=== PATIENT | male | born 1955 | race Caucasian/White ===

== ENCOUNTER 2025-03-22 14:03 | Emergency (ER) | payer MEDICARE, MEDICAID, SELFPAY ==
[2025-03-22 14:04] VITALS: BMI 29.1
[2025-03-22 14:19] VITALS: BP 139/81; PULSE 77; RESP 18; TEMP 36.6; O2SAT 95
--- NOTE | 2025-03-22 14:24 | EKG_ITS ---
[facility] Test Date: 2025-03-22 Pat Name: MANSI FULTON Department: Room: - Gender: Male Be[employer] Killer: : 1955 Requested By: Corby Jay (VICTORIANO) Order Number: [id number] Reading MD: Corby Jay (CYCLE ANALYST) Measurements Intervals [place] Rate: 75 P: 29 [place]: 161 QRS: -52 QRSD: 86 T: 29 QT: 357 QTc: 400 Interpretive Statements SINUS RHYTHM PATTERN CONSISTENT WITH PULMONARY DISEASE LEFT ANTERIOR FASCICULAR BLOCK [QRS AXIS <= -45, QR IN I, RS IN II] Compared to ECG 10/07/2018 09:44:36 Left anterior fascicular block now present Sinus bradycardia no longer present Left-axis deviation no longer present Incomplete right bundle-branch block no longer present /[id number]/[id number].pdf
--- NOTE | 2025-03-22 14:24 | XR_ITS ---
Examination: PA lateral chest 2 views TECHNIQUE: Upright PA lateral chest 2 views Exam date and time: March 14, 2025 1618 hours Comparison October 07, 2018 INDICATIONS: Chest pain today. FINDINGS: Mild opacity in the lingular segment Normal heart size Right lung clear Moderate osteopenia IMPRESSION: Scarring versus mild pneumonia in the lingular segment left upper lobe, clinical correlation advised
--- NOTE | 2025-03-22 14:25 | EDRME_ITS ---
Rapid Medical Screening Exam RME Arrival date/time: 03/22/25 14:03 70-year-old male presents to the emergency department for complaint of left- sided chest pain ongoing x 4 days Chief Complaint: Chest Pain Time Seen by Provider: 03/22/25 14:23 Vital signs: Vital Signs Temperature 97.9 F 03/22/25 14:19 Pulse Rate 77 03/22/25 14:19 Respiratory Rate 18 03/22/25 14:19 Blood Pressure 139/81 H 03/22/25 14:19 Pulse Oximetry (%) 95 03/22/25 14:19 Oxygen Delivery Method Room Air 03/22/25 14:19
[2025-03-22 16:05] LABS: Basophils % (Auto) 0 % (0-2.5); Eosinophils # (Auto) 0.1 Thou/mm3 (0.0-0.5); Eosinophils % (Auto) 1 % (0-10); Hematocrit 41.6 % (41.0-53.0); Hemoglobin 14.7 g/dL (13.5-16.0); Immature Granulocytes % (Auto) 0 % (0-0); Immature Granulocytes Auto 0.02 Thou/mm3 (0.00-0.00); Lymphocytes # (Auto) 4.2 Thou/mm3 (1.0-4.8); Lymphocytes % (Auto) 40 % (10-50); Mean Corpuscular HGB Conc 35.3 g/dl (31.0-37.0); Mean Corpuscular Hemoglobin 33.6 pg (25.0-35.0); Mean Corpuscular Volume 95 fL (80-100); Monocytes # (Auto) 0.8 Thou/mm3 (0.0-0.8); Monocytes % (Auto) 7 % (0-12); Neutrophils # (Auto) 5.3 Thou/mm3 (1.8-7.7); Neutrophils % (Auto) 51 % (37-80); Nucleated Red Blood Cell % 0 /100 WBC (0); Platelet Count 208 Thou/mm3 (140-440); RDW Standard Deviation 46.5 fL (35.1-43.9); Red Blood Count 4.38 Miln/mm3 (4.50-5.90); White Blood Count 10.4 Thou/mm3 (3.8-10.6)
[2025-03-22 16:14] LABS: B-Type Natriuretic Peptide < 20 pg/mL (0-100)
[2025-03-22 16:15] LABS: Alanine Aminotransferase 16 U/L (10-49); Albumin, Serum 4.7 gm/dL (3.4-4.8); Albumin/Globulin Ratio 1.6 (1.2-2.2); Alkaline Phosphatase 119 U/L (46-116); Anion Gap 7 (7-16); Aspartate Amino Transferase 22 U/L (0-34); BUN/Creatinine Ratio 18 Ratio (12-20); Bilirubin,Total 0.4 mg/dL (0.3-1.2); Blood Urea Nitrogen 14 mg/dL (9-23); Calcium 9.6 mg/dL (8.3-10.6); Calcium (Corrected) 9.6 mg/dL (8.5-10.1); Carbon Dioxide 24.7 mMol/L (20.0-31.0); Chloride 104 mMol/L (98-107); Creatinine (Component) 0.8 mg/dL (0.6-1.3); Estimated Creatinine Clearance 84.6 mL/min (>60); Glucose 115 mg/dL (74-106); Osmolality,Calculated 273 (275-295); Potassium 4.1 mMol/L (3.4-5.1); Sodium 136 mMol/L (136-145); Total Protein 7.7 gm/dL (5.7-8.2); Troponin I < 0.002 ng/mL (0.0-0.045); eGFR > 60 See Note
[2025-03-22 17:22] LABS: Collection Type, Urine Clean Catch; Squamous Epithelial Cell,Urine 0 /hpf (0-5)
[2025-03-22 17:43] LABS: Bilirubin,Urine Negative (Negative); Blood,Urine Negative (Negative); Clarity,Urine Clear (Clear/Hazy); Color,Urine Lt-Yellow (Lt Yel-Yel); Glucose, Urine Negative (Negative); Ketones,Urine Negative (Negative); Leukocyte Esterase,Urine Negative (Negative); Nitrite,Urine Negative (Negative); PH,Urine 5.5 (5.0-7.0); Protein,Urine Negative (Neg - Trace); RBC,Urine 1 /hpf (0-3); Specific Gravity,Urine 1.017 (1.001-1.035); Urobilinogen,Urine Negative mg/dL (0.0-1.0); WBC,Urine 1 /hpf (0-5)
[2025-03-22 18:19] VITALS: BP 154/94; PULSE 85; RESP 16; TEMP 37.1; O2SAT 97
[2025-03-22 18:23] LABS: Amphetamine/Methamp Scrn,U Negative (Negative); Barbiturate Screen,Urine Negative (Negative); Benzodiazepines Screen,Urine Negative (Negative); Benzoylecgonine Screen, Ur Negative (Negative); Fentanyl Screen,Urine Negative (Negative); Opiate Screen,Urine Negative (Negative); THC Screen,Urine Negative (Negative)
[2025-03-22 18:24] VITALS: PULSE 77
--- NOTE | 2025-03-22 18:36 | PC.NURSE ---
PT CAME IN TO THE ED FOR REPORTED CHEST PAIN. PAIN STARTED WHILE PT WAS WORKING. HE STATES AT REST HE DOESNT HAVE PAIN. PT STATES THAT PAIN OCCURS WITH ACTIVITY
--- NOTE | 2025-03-22 18:45 | PD.EDADULT ---
ED General RME/HPI General Chief complaint: Chest Pain Stated complaint: CHEST PAIN X4 DAYS Time Seen by Provider: 03/22/25 14:23 Arrival date/time: 03/22/25 14:03 CC: Chest pain the left anterior chest site-specific reproducible with deep breaths or cough. Denies coughing onset 4 days ago, denies shortness of breath fever chills no prior history of similar events. Is not reproducible with palpation. RME / HPI RME / HPI narrative: 03/22/25 14:03 70-year-old male presents to the emergency department for complaint of left-sided chest pain ongoing x 4 days Related Data Previous Rx's ?Medication ?Instructions ?Recorded docusate sodium 100 mg capsule 100 mg PO BID #60 caps 10/29/18 hydrocodone 7.5 mg-acetaminophen 1 tab PO Q6HR PRN Pain #20 tabs 10/29/18 325 mg tablet hydrocodone 5 mg-acetaminophen 300 1 tab PO TID PRN pain #20 tabs 09/29/20 mg tablet trazodone 50 mg tablet 25 mg (1/2 x 50 mg) PO QDAY PRN 11/27/22 insomnia #30 tabs trazodone 100 mg tablet 100 mg PO QDAY PRN insomnia #30 02/02/24 tabs doxycycline hyclate 100 mg capsule 100 mg PO BID #14 caps 03/22/25 Allergies Allergy/AdvReac Type Severity Reaction Status Date / Time No Known Allergies Allergy Verified 03/22/25 14:04 Past Medical History Past Medical History NEUROLOGIC: Negative Neurological Disorders or Seizures CARDIAC: Negative Cardiac Disorders or Congestive Heart Failure RESPIRATORY: Negative Chronic Obstructive Pulmonary Disease (COPD) or Asthma GASTROINTESTINAL: Positive Gastrointestinal Disorders, Colitis and Hemorrhoids GENITOURINARY: Negative Genitourinary Disorders or Renal Disease MUSCULOSKELETAL: Negative Musculoskeletal Disorders ENDOCRINE: Negative Endocrine Disorders, Diabetes Mellitus Type 1 or Diabetes Mellitus Type 2 HEMATOLOGIC: Negative Blood Disorders, Anemia or Sickle Cell Disease PSYCHO/SOCIAL: Negative Depression or Anxiety OTHER HISTORY: Positive Chicken Pox and Measles; Negative Falls, Blood Transfusions, Blood Transfusion Reaction or Anesthesia Reactions Family History FAMILY HISTORY: Positive Family Cancer Social History SMOKING STATUS: Never smoker ED Exam Narrative Physical exam: [General: Not in any acute distress Head normocephalic HEENT: Within acceptable limits Neck is supple nontender Chest equal chest rise nontender to palpation Respiratory: Clear to auscultation no wheezes crackles or rubs CV: Rate rhythm is regular no murmurs rubs or clicks Abdomen is flat, soft nontender no masses positive bowel sounds all 4 quadrants Back: No CVA tenderness no spinous process tenderness from cervical spine thoracic and lumbar spine Skin: Intact no petechiae rash induration ulceration or crepitus Extremities: Moving all extremity against resistance cap refill less than 2 seconds neurosensory intact Neuro: Awake alert oriented x3 Glascow coma 15 no focal deficits] Course Course Course Narrative: I have a low index of suspicion that the scarring is actually a pneumonia and it is not related to the patient's clinical findings however the patient would put on 1 week of antibiotics as a precaution. The patient does not have any cough fever shortness of breath or leukocytosis. I suspect the chest wall pain is precisely that and not related to cardiac as well. Patient be discharged home to follow-up with a primary care provider. Quality Measures none Orders Category Date Time Status EKG (ED ONLY) *Do not use* NOW Care 03/22/25 14:24 Completed EKG (ED Only) Stat Exams 03/22/25 14:24 Draft XR chest 2V Stat Exams 03/22/25 14:24 Completed B-Type Natriuretic Peptide Stat Lab 03/22/25 15:40 Completed CBC Stat Lab 03/22/25 15:40 Completed Comprehensive Metabolic Panel Stat Lab 03/22/25 15:40 Completed Drug Screen,Urine Stat Lab 03/22/25 17:14 Completed Troponin I Stat Lab 03/22/25 15:40 Completed Urinalysis Stat Lab 03/22/25 17:14 Completed Vital Signs Vital signs: Vital Signs Temperature 97.9 F 03/22/25 14:19 Pulse Rate 77 03/22/25 14:19 Respiratory Rate 18 03/22/25 14:19 Blood Pressure 139/81 H 03/22/25 14:19 Pulse Oximetry (%) 95 03/22/25 14:19 Oxygen Delivery Method Room Air 03/22/25 14:19 Discharge Plan Plan Patient Disposition: HOME (Self Care) Patient condition on transfer: Stable Prescriptions/Referrals Prescriptions/Med Rec: New doxycycline hyclate 100 mg capsule 100 mg PO BID Qty: 14 0RF No Action hydrocodone-acetaminophen 7.5-325 mg Tablet 1 tab PO Q6HR MDD 4 PRN (Reason: Pain) Qty: 20 0RF docusate sodium 100 mg Capsule 100 mg PO BID Qty: 60 0RF hydrocodone-acetaminophen 5-300 mg tablet 1 tab PO TID MDD 3 PRN (Reason: pain) Qty: 20 0RF trazodone 50 mg tablet 25 mg PO QDAY PRN (Reason: insomnia) Qty: 30 0RF trazodone 100 mg tablet 100 mg PO QDAY PRN (Reason: insomnia) Qty: 30 0RF Referrals: Familia Leavitt MD [Primary Care Provider] - In 1 week Problem List Clinical Impression: Chest pain, Pneumonia Patient/Caregiver Discharge Instructions Education Materials: ED Chest Pain, Uncertain Cause, ED Pneumonia (Adult) Additional Instructions: Take the medication as prescribed with is worsening symptoms despite the medications follow-up with your primary care doctor or return the emergency room for reevaluation. Print Language: Kittitian Stand Alone Forms: [employer] Award Info., Work/School Release, Patient Portal Info Letter PA/MEDICAL SAFETY DIRECTOR Supervising Physician PA/MEDICAL SAFETY DIRECTOR Supervising Physician: Olegario Michelle ENMireille MDM Patient Acuity High Acuity (complete MDM) Clinical Information Provided by: patient Medical Records reviewed [facility] Meds/Rx considered, not ordered None Labs/Rad/Tests considered, not ordered None EKG EKG Interpretation(s): EKG performed at 1431 shows a ventricular rate of 75 [place] interval 161 QRS of 86 QTc of 386 is sinus rhythm. Labs Lab(s) Interpretation(s): CBC shows no acute leukocytosis anemia thrombocytopenia CMP shows no electrolyte imbalances other than a glucose of 115 no renal impairment transaminitis or T. bili elevation. Troponin is negative BNP is negative Urine is negative for any acute finding requires emergent or immediate intervention UDS is negative. Imaging Imaging Interpretation(s): Chest x-ray as interpreted by read by radiology shows scarring versus early pneumonia in the left base,
[2025-03-22] MEDS: DOXYCYCLINE 100 MG TABLET PO (18:54)
== END 2025-03-22 18:58 | disposition home or self-care (01) ==
PROVIDERS: Nurse Practitioner Primary Care; Emergency Provider Emergency Medicine; PCP Family Medicine
DX: J18.9 Pneumonia, unspecified organism (principal); I44.4 Left anterior fascicular block
CPT/HCPCS: 36415; 71046; 80053; 80307; 81001; 83880; 84484; 85025; 93005; 99283; A9270